=== PATIENT | female | born 1985 | race Hispanic/Latino ===

== ENCOUNTER 2018-07-01 20:20 | Emergency (ER) | payer OTHER ==
[~2018-07-01 20:20] MED LIST: FE F1TAB3 PO; FERR-82 PO; GLYB5TAB8 PO; METH250T3 PO
== END 2018-07-01 20:55 | disposition home or self-care (01) ==
LOC: EDH 20:20
DX: L03.316 Cellulitis of umbilicus (principal); I10 Essential (primary) hypertension; Z72.0 Tobacco use

== ENCOUNTER 2018-07-16 01:28 | Emergency (ER) | payer OTHER ==
[2018-07-16 02:05] LABS: BASOPHILS % (AUTO) 1.3 % (0.0-5.0); EOSINOPHILS % (AUTO) 2.4 % (0.0-8.0); HEMATOCRIT 34.7 % (36-48); LYMPHOCYTES % (AUTO) 24.3 % (21.0-51.0); MEAN CORPUSCULAR HEMOGLOBIN 22.1 pg (27.0-33.0); MEAN CORPUSCULAR HGB CONC 29.8 g/dL (32.0-36.0); MONOCYTES % (AUTO) 5.2 % (3.0-13.0); NEUTROPHILS % (AUTO) 66.8 % (40.0-77.0); PLATELET COUNT (AUTO) 435 K/uL (130-400); RED CELL DISTRIBUTION WIDTH 17.7 % (11.0-15.5)
[2018-07-16 02:08] LABS: APPEARANCE,URINE Clear (CLEAR); BILIRUBIN,URINE Negative (NEGATIVE); COLOR,URINE Yellow (YELLOW); GLUCOSE, URINE (UA) Negative (NEGATIVE); KETONES,URINE Negative (NEGATIVE); LEUKOCYTE ESTERASE ,URINE Negative (NEGATIVE); NITRATE,URINE Negative (NEGATIVE); OCCULT BLOOD,URINE Negative (NEGATIVE); PH,URINE 5.5 (5.0-8.0); PROTEIN,URINE Negative (NEGATIVE)
[2018-07-16 02:15] LABS: CREATININE 0.8 mg/dL (0.5-1.5); POTASSIUM 4.2 mmol/L (3.5-5.1)
[2018-07-16 02:19] LABS: ALBUMIN 3.2 g/dL (3.5-5.0); BILIRUBIN,TOTAL 0.2 mg/dL (0.2-1.0); TOTAL PROTEIN, SERUM 7.2 g/dL (6.0-8.3)
[2018-07-16] MEDS ORDERED: ONDANSETRON HCL 4 MG/2 ML VIAL ONE (03:35)
[2018-07-16] MEDS ORDERED: MORPHINE SULFATE 4 MG/1ML SYG ONE (03:35)
== END 2018-07-16 04:35 | disposition home or self-care (01) ==
LOC: EDH 01:28
DX: K80.50 Calculus of bile duct without cholangitis or cholecystitis without obstruction (principal); K80.20 Calculus of gallbladder without cholecystitis without obstruction; I10 Essential (primary) hypertension; Z72.0 Tobacco use
CPT/HCPCS: 36415; 76705; 80053; 81003; 82150; 83690; 84702; 85025; 86677; 93005; 96374; 96375; 99284; J2270; J2405

== ENCOUNTER 2018-11-08 22:52 | Emergency (ER) | payer OTHER ==
[2018-11-08] MEDS ORDERED: ONDANSETRON ODT 4 MG TAB ONE (23:11)
[2018-11-09] MEDS ORDERED: DEXAMETHASONE SOD PHOSPHATE 10MG/ML 1ML VIAL ONE (00:25)
[2018-11-09] MEDS ORDERED: BENZONATATE 100 MG CAPSULE PO ONE (00:25)
[2018-11-09] MEDS ORDERED: IPRATROPIUM/ALBUTEROL SULFATE 3 ML SOLUTION IH ONE (00:33)
== END 2018-11-09 01:36 | disposition home or self-care (01) ==
LOC: EDH 22:52
DX: J20.9 Acute bronchitis, unspecified (principal); J02.9 Acute pharyngitis, unspecified; I10 Essential (primary) hypertension
CPT/HCPCS: 94640; 96372; 99283; J1100

== ENCOUNTER 2020-12-30 12:09 | Emergency (ER) | payer OTHER ==
[~2020-12-30] VITALS: Ht 162.6 cm; Wt 104.3 kg
[2020-12-30 12:12] VITALS: BP 137/55
[2020-12-30] MEDS ORDERED: FAMOTIDINE 20MG TAB 20 MG TAB PO STA (12:28)
[2020-12-30] MEDS ORDERED: ONDANSETRON HCL 4 MG/2 ML VIAL IVP STA (12:28)
[2020-12-30] MEDS ORDERED: LACTATED RINGERS 1000ML 1,000 ML IV ONE ×2 (12:30→13:53)
[2020-12-30] MEDS: PROCHLORPERAZINE EDISYLATE 10 MG/2 ML VIAL IV SCH ×2 (12:36→14:29)
[2020-12-30 12:50] LABS: APPEARANCE,URINE Cloudy (CLEAR); BILIRUBIN,URINE Negative (NEGATIVE); COLOR,URINE Yellow (YELLOW); GLUCOSE, URINE (UA) Negative (NEGATIVE); KETONES,URINE Negative (NEGATIVE); LEUKOCYTE ESTERASE ,URINE Trace (NEGATIVE); NITRATE,URINE Negative (NEGATIVE); OCCULT BLOOD,URINE Negative (NEGATIVE); PH,URINE 6.5 (5.0-8.0); PROTEIN,URINE Negative (NEGATIVE)
[2020-12-30 13:08] LABS: RBC,URINE 0-1 /HPF (0-1)
[2020-12-30 13:09] LABS: BACTERIA,URINE Moderate /HPF (None Seen); SQUAMOUS EPITHELIAL CELL,UR Many /HPF (0-2)
[2020-12-30 13:19] LABS: BASOPHILS % (AUTO) 0.6 % (0.0-5.0); HEMATOCRIT 38.6 % (36-48); LYMPHOCYTES % (AUTO) 19.3 % (21.0-51.0); MEAN CORPUSCULAR HEMOGLOBIN 22.8 pg (27.0-33.0); MEAN CORPUSCULAR HGB CONC 29.5 g/dL (32.0-36.0); MEAN CORPUSCULAR VOLUME 77.2 fL (79-99); MONOCYTES % (AUTO) 4.7 % (3.0-13.0); NEUTROPHILS % (AUTO) 73.9 % (40.0-77.0); PLATELET COUNT (AUTO) 440 K/uL (130-400); RED CELL DISTRIBUTION WIDTH 18.1 % (11.0-15.5); WHITE BLOOD COUNT (AUTO) 11.9 K/uL (4.8-10.8)
[2020-12-30 13:25] VITALS: BP 135/72
[2020-12-30 13:32] LABS: CREATININE 0.8 mg/dL (0.5-1.5); POTASSIUM 3.7 mmol/L (3.5-5.1)
[2020-12-30 13:36] LABS: ALBUMIN 3.5 g/dL (3.5-5.0); BILIRUBIN,TOTAL 0.4 mg/dL (0.2-1.0); TOTAL PROTEIN, SERUM 7.5 g/dL (6.0-8.3)
[2020-12-30] MEDS ORDERED: ONDANSETRON HCL 4 MG/2 ML VIAL ONE (13:52)
[2020-12-30] MEDS ORDERED: FAMOTIDINE 20MG TAB 20 MG TAB ONE (13:52)
[2020-12-30] MEDS ORDERED: ONDANSETRON 4 MG TABLET PO STA (14:20)
[2020-12-30] MEDS ORDERED: MECLIZINE HCL 25 MG TABLET PO STA (14:20)
[2020-12-30] MEDS ORDERED: ONDA4TAB4 PO (16:47)
[2020-12-30] MEDS ORDERED: MECL-160 PO (16:47)
[2020-12-30] MEDS ORDERED: IBUP-2088 PO (16:47)
[2020-12-30 16:50] VITALS: BP 135/72
== END 2020-12-30 17:08 | disposition home or self-care (01) ==
LOC: EDH 12:09
DX: H81.10 Benign paroxysmal vertigo, unspecified ear (principal); N83.201 Unspecified ovarian cyst, right side; R11.2 Nausea with vomiting, unspecified; E66.9 Obesity, unspecified; Z79.899 Other long term (current) drug therapy
CPT/HCPCS: 36415; 76830; 80053; 81001; 82150; 83690; 84703; 85025; 87088; 99284; J0780; J2405; J7120; Q0162

== ENCOUNTER 2021-09-19 08:50 | Emergency (ER) | payer MEDICAID, OTHER ==
[~2021-09-19] VITALS: Ht 162.6 cm; Wt 105.7 kg
[~2021-09-19 08:50] MED LIST changes: +IBUP-2088 PO; +MECL-160 PO; +ONDA4TAB4 PO
[2021-09-19 09:28] LABS: BASOPHILS % (AUTO) 0.8 % (0.0-5.0); EOSINOPHILS % (AUTO) 4.7 % (0.0-8.0); LYMPHOCYTES % (AUTO) 30.2 % (21.0-51.0); MEAN CORPUSCULAR HEMOGLOBIN 24.1 pg (27.0-33.0); MEAN CORPUSCULAR VOLUME 80.5 fL (79-99); MONOCYTES % (AUTO) 5.7 % (3.0-13.0); NEUTROPHILS % (AUTO) 58.2 % (40.0-77.0); PLATELET COUNT (AUTO) 420 K/uL (130-400); RED BLOOD CELL COUNT(AUTO) 4.97 MIL/uL (4.00-5.50); RED CELL DISTRIBUTION WIDTH 19.1 % (11.0-15.5); WHITE BLOOD COUNT (AUTO) 9.7 K/uL (4.8-10.8)
[2021-09-19 09:30] LABS: APPEARANCE,URINE Clear (CLEAR); BILIRUBIN,URINE Negative (NEGATIVE); COLOR,URINE Yellow (YELLOW); GLUCOSE, URINE (UA) Negative (NEGATIVE); KETONES,URINE Negative (NEGATIVE); LEUKOCYTE ESTERASE ,URINE Trace (NEGATIVE); NITRATE,URINE Negative (NEGATIVE); OCCULT BLOOD,URINE Large (NEGATIVE); PH,URINE 5.5 (5.0-8.0); PROTEIN,URINE Trace mg/dL (NEGATIVE); UROBILINOGEN,URINE 0.2 mg/dL (0.2-1.0)
[2021-09-19] MEDS ORDERED: ONDANSETRON 4MG INJ IVP SCH (09:30)
[2021-09-19] MEDS ORDERED: MORPHINE 4 MG SYG IV SCH (09:30)
[2021-09-19] MEDS ORDERED: 0.9%NACL 1000ML 1,000 ML IV SCH (09:30)
[2021-09-19 09:37] LABS: CREATININE 0.7 mg/dL (0.5-1.5); INR 0.89 (0.85-1.15); POTASSIUM 3.9 mmol/L (3.5-5.1); PROTHROMBIN TIME 9.8 SEC (9.6-11.6)
[2021-09-19 09:38] LABS: PARTIAL THROMBOPLASTIN TIME 28.1 SEC (26.3-35.5)
[2021-09-19 09:50] LABS: BACTERIA,URINE Few /HPF (None Seen); WBC,URINE 0-1 /HPF (0-1)
[2021-09-19 09:51] LABS: SQUAMOUS EPITHELIAL CELL,UR 0-2 /HPF (0-2)
[2021-09-19 09:52] LABS: ALBUMIN 3.6 g/dL (3.5-5.0); BILIRUBIN,TOTAL 0.2 mg/dL (0.2-1.0); TOTAL PROTEIN, SERUM 7.5 g/dL (6.0-8.3)
[2021-09-19 10:38] VITALS: BP 166/70
[2021-09-19] MEDS ORDERED: ACET1TAB25 PO (10:41)
== END 2021-09-19 11:01 | disposition home or self-care (01) ==
LOC: EDH 08:50
DX: O03.9 Complete or unspecified spontaneous abortion without complication (principal); Z98.890 Other specified postprocedural states; Z79.899 Other long term (current) drug therapy; Z79.84 Long term (current) use of oral hypoglycemic drugs; Z79.1 Long term (current) use of non-steroidal anti-inflammatories (NSAID)
CPT/HCPCS: 36415; 76817; 80053; 81001; 84702; 85025; 85610; 85730; 96361; 96374; 96375; 99284; J2270; J2405; J7030

== ENCOUNTER 2025-01-31 19:35 | Inpatient (IN) | payer BC, MEDICAID ==
[~2025-01-31] VITALS: Ht 162.6 cm; Wt 117.7 kg
[~2025-01-31 19:35] MED LIST changes: +ACET-2079 PO; -MECL-160 PO; +MECL-302 PO
[2025-01-31 19:53] LABS: IMMATURE GRANULOCYTE ABSOLUTE 0.05 K/uL (0-1); NUCLEATED RED BLOOD CELLS 0.0 % (0.0-0.19); PLATELET COUNT (AUTO) 427 K/uL (130-400); RED BLOOD CELL COUNT(AUTO) 4.50 MIL/uL (4.00-5.50); RED CELL DISTRIBUTION WIDTH 18.9 % (11.0-15.5); WHITE BLOOD COUNT (AUTO) 8.5 K/uL (4.8-10.8)
[2025-01-31 20:02] LABS: CREATININE 0.6 mg/dL (0.5-1.0); GLOMERULAR FILTR. RATE CALC 116.0 mL/min (>90); GLUCOSE,RANDOM 135.0 mg/dL (70-105); SODIUM SERUM 139.0 mmol/L (136-145); UREA NITROGEN, BLOOD 14.0 mg/dL (7-18)
[2025-01-31 20:11] LABS: CREATINE KINASE, TOTAL 42.0 U/L (21-232)
--- NOTE | 2025-01-31 20:11 | ERN ---
ED Note History of Present Illness Stated Complaint: CHEST PAIN Chief Complaint: Chest Pain Time Seen by MD: 19:38 Dictation: This is a 39-year-old obese female who does not have any routine health care has come in with complaints of midsternal and lower sternal chest pain for the past 1 month. She stated that it feels more like a pressure somebody sitting on her chest and at times she feels a flutter in her chest. No history of any diaphoresis radiation to the shoulder, or syncopal episodes. No history of any gastroesophageal reflux symptoms it is not a reproducible pain on touching or palpation and there is no relation to pain quality changes associated with leaning forward. Temperature 97.2 pulse 77 respirations 20 blood pressure 154/72 with a pulse oximetry of 100% on room air Comorbidities unknown as the patient has never had any routine health care. She does give a history of iron deficiency anemia and gestational diabetes Allergies: Coded Allergies: No Known Drug Allergies (Unverified Allergy, Unknown, 06/18/16) Home Meds Active Scripts Acetaminophen with Codeine (Acetaminophen-Cod #3 Tablet) 1 Each Tablet, 1-2 TAB PO Q6H PRN for SEVERE PAIN (7-10), #12 TAB 0 Refills Prov:RIC MASCORRO MD 09/19/21 Ibuprofen (Motrin/Advil) 600 Mg Tab, 600 MG PO TID, #30 TAB Prov:MARK CLEMENTE NP 12/30/20 Ondansetron HCl (Zofran) 4 Mg Tablet, 4 MG PO TID, #15 TAB Prov:MARK CLEMENTE NP 12/30/20 Meclizine HCl (Meclizine HCl) 25 Mg Tablet, 25 MG PO BID, #30 TAB Prov:MARK CLEMENTE NP 12/30/20 Reported Medications Methyldopa (Methyldopa) 250 Mg Tablet, 250 MG PO DAILY, TAB 07/12/16 Glyburide (Glyburide) 5 Mg Tablet, 5 MG PO DAILY, TAB 07/12/16 Fe Fumarate/Long/E/FA/Multivit (Vitafol Caplet) 1 Each Tablet, 1 EACH PO DAILY, TAB 07/12/16 Ferrous Sulfate (Iron) 325 Mg Tablet, 325 MG PO DAILY, TAB 07/26/15 Past Medical History Past Medical History: Other Additional Past Medical Hx: HEAERT MURMUR Surgical History: Other, Surgical History Other: RT ACL Family History: Negative Social History: Smokers (Smokes a pack for 2-3 days.), Drugs (History of smoking marijuana she also admitted to eating marijuana edibles), ETOH (Admits to drinking socially), Other : 12 Para: 6 Aborts: 6 RN Note Reviewed/Agreed w/PFSH: Yes Review of System Dictation Constitutional: Negative for fever,chills, and weight loss Eyes: Negative for injury, pain,redness, and discharge ENT: Negative for injury,pain or swelling Cardiovascular: Positive for chest pain, palpitations, and edema Respiratory: Negative for shortness of breath, cough, and wheezing, Abdomen/GI: Negative for abdominal pain, nausea, vomiting, diarrhea, and constipation Back: Negative for injury and pain : Negative for injury, bleeding and discharge MS/Extremity: Negative for injury and deformity Skin: Negative for rash, and discoloration Neuro: Negative for headache, weakness, numbness, tingling, and seizure Psych: Negative for suicide ideation, homicidal ideation, and hallucinations Initial Vital Sign VS Vital Signs Date Time Temp Pulse Resp B/P (MAP) Pulse Ox O2 Delivery O2 Flow Rate FiO2 01/31/25 19:36 97.2 77 20 154/72 100 Room Air 01/31/25 20:06 0 21 Physical Exam Dictation General: awake, alert, NAD morbidly obese not in any distress Head/Face: Normocephalic, atraumatic Eyes: PERRL, EOMI, vision at baseline ENT: oral cavity clear, TMs clear, no signs of infection poor dentition with multiple missing teeth Neck: Trachea midline, supple, no nuchal rigidity Cardiovascular: RRR, normal S1/S2, No MRGs, no JVD Respiratory: CTAB, no respiratory distress, No rales or wheezes prolonged expiratory phase Abdomen: Soft, non-tender, non-distended, normal bowel sounds, no guarding or rebound. Skin: Warm, dry, normal turgor, no rash MS/Extremity: Pulses equal, no cyanosis, neurovascular intact, FROM Neuro: COAx4, GCS 15, strength 5/5, CN 2-12 intact, normal cerebellar exam, normal gait, Psych: Normal behavior, mood, and affect normal Extremities-trace edema without any palpable cords, Homans sign is negative Results (Laboratory/Radiology) Laboratory/Radiology Laboratory Tests Test 7/12/25 19:46 White Blood Count 8.5 K/uL (4.8-10.8) Red Blood Count 4.50 MIL/uL (4.00-5.50) Hemoglobin 10.3 g/dL (12.0-16.0) L Hematocrit 35.0 % (36-48) L Mean Corpuscular Volume 77.8 fL (79-99) L Mean Corpuscular Hemoglobin 22.9 pg (27.0-33.0) L Mean Corpuscular Hemoglobin Concent 29.4 g/dL (32.0-36.0) L Red Cell Distribution Width 18.9 % (11.0-15.5) H Platelet Count 427 K/uL (130-400) H Mean Platelet Volume 8.9 fL (7.5-10.5) Immature Granulocyte % (Auto) 0.6 % (0-1) Neutrophils (%) (Auto) 64.2 % (40.0-77.0) Lymphocytes (%) (Auto) 24.9 % (21.0-51.0) Monocytes (%) (Auto) 5.1 % (3.0-13.0) Eosinophils (%) (Auto) 4.4 % (0.0-8.0) Basophils (%) (Auto) 0.8 % (0.0-5.0) Neutrophils # (Auto) 5.5 K/uL (1.8-7.7) Lymphocytes # (Auto) 2.1 K/uL (1.0-4.8) Monocytes # (Auto) 0.4 K/uL (0.1-1.0) Eosinophils # (Auto) 0.37 K/uL (0.00-0.70) Basophils # (Auto) 0.07 K/uL (0.00-0.20) Absolute Immature Granulocyte (auto 0.05 K/uL (0-1) Nucleated Red Blood Cells 0.0 % (0.0-0.19) Red Blood Cell Morphology See comments Sodium Level 139 mmol/L (136-145) Potassium Level 3.9 mmol/L (3.5-5.1) Chloride Level 105 mmol/L (101-111) Carbon Dioxide Level 24 mmol/L (21-32) Blood Urea Nitrogen 14 mg/dL (7-18) Creatinine 0.6 mg/dL (0.5-1.0) Glomerular Filtration Rate Calc 116 mL/min (>90) Random Glucose 135 mg/dL (70-105) H Total Calcium 8.9 mg/dL (8.5-10.1) Total Creatine Kinase 42 U/L (21-232) # Troponin I High Sensitivity < 4 ng/L (4-50) L Labs Reviewed?: Yes ED Course ED Course Orders Procedure Category Date Status Time Vital Signs Per CPOE 01/31/25 Transmitted Routine 19:37 Chest 1vw RAD 01/31/25 Taken 19:37 Oxygen By Nc/Pulse Ox CPOE 01/31/25 Transmitted 19:37 Maintain Iv CPOE 01/31/25 Transmitted 19:37 Iv Insertion CPOE 01/31/25 Transmitted 19:37 Cardiac Monitoring CPOE 01/31/25 Transmitted 19:37 Pulse Oximetry With CPOE 01/31/25 Transmitted Vs And Prn 19:37 Cbc With Differential LAB 01/31/25 Complete 19:37 Activity: Br W/Brp CPOE 01/31/25 Transmitted With Assist 19:37 Creatine Kinase, Total LAB 01/31/25 Complete 19:37 Troponin I High LAB 01/31/25 Complete Sensitivity 19:37 Urinalysis Profile LAB 01/31/25 Logged 19:37 Basic Metabolic Panel LAB 01/31/25 Complete 19:37 ,Urine Test LAB 01/31/25 Logged 20:10 Aspirin 325mg Tab PHA 01/31/25 In Process (Aspirin 325mg Tab) 21:00 Nitroglycerin 0.4mg PHA 01/31/25 In Process Sl Tab (Nitrostat) 21:00 Methylprednisolone PHA 01/31/25 In Process Succ 40mg (Solu-Medro 21:00 Ipratropium/Albuterol PHA 01/31/25 In Process Neb (Duoneb) 21:00 Drug Screen Urine LAB 01/31/25 Logged 20:38 Current Medications Medications (Trade) Dose Ordered Sig/Derrek Route PRN Reason Start Time Stop Time Status Last Admin Dose Admin Albuterol (DUOneb) 1 UDVIAL ONCE ONCE IH 01/31/25 21:00 01/31/25 21:01 Aspirin (Aspirin 325mg Tab) 325 mg ONCE ONCE PO 01/31/25 21:00 01/31/25 21:01 Methylprednisolone Sodium Succinate (Solu-medROL 40MG) 40 mg ONCE ONCE IVP 01/31/25 21:00 01/31/25 21:01 Nitroglycerin (Nitrostat) 0.4 mg AD PRN SL CHEST PAIN 01/31/25 21:00 03/02/25 20:59 Vital Signs Date Time Temp Pulse Resp B/P (MAP) Pulse Ox O2 Delivery O2 Flow Rate FiO2 01/31/25 20:06 97.9 70 17 142/76 99 Room Air* 0 21 01/31/25 19:36 97.2 77 20 154/72 100 Room Air We will perform diagnostic labs, advanced imaging and administer medications according to the patient's complaint. Once the results are available, will review and personally interpreted the labs to rule out any acute life-th reatening emergency the trach require immediate intervention and treatment. I will then re-evaluate the patient after treatment and diagnostic exams have return to determine whether the patient requires any further testing, can safely be discharged home or need further admission to hospital for additional treatment and evaluation. Reviewed labs CBC showed a hemoglobin of 10.3 white count 8.5 platelets 427. BNP 7 is with a normal limits troponins are negative. Chest x-ray showed mild prominence of the bilateral interstitial infiltrates Due to multiple lifestyle risk factors even though she has not been evaluated for any comorbidities, I recommended that she needs to be evaluated further for diastolic dysfunction, even ischemic heart disease and she is agreeable 8:45 p.m. patient accepted by [facility] mid-level provider for hospitalist group for admission and further management Medical Decision Making MDM MDM: Differential diagnosis: Unstable angina, esophagitis, musculoskeletal pain, gastritis, pulmonary related Rationale: Tests considered and ordered secondary to shared decision making include: labs, ECG and radiology Previous outside records reviewed: Old ER visits. Risk of complication and/or morbidity or mortality of patient management: None Medications-Per medication reconciliation Need for hospitalization: Patient does meet criteria for hospitalization. Need for emergency major/minor surgery: No There are no social concerns with this patient. Prescription drug management Prescriptions will include symptomatic care Patient's prior external medical records from other ER visits were reviewed by me as indicated. Prior testing and results from previous visits were reviewed. Prior tests were taken into account with medical decision making and resource utilization, independent historian/historians were used to obtain complete medical history. I independently interpreted the test that were performed, results were reviewed by me and considered findings on radiology if ordered. Medical management and examination interpretation discussions were had by me with other qualified healthcare professionals as indicated for the patient's care. Problem List Problem List: (1) Unstable angina (2) COPD with acute exacerbation (3) Tobacco abuse disorder (4) Cannabis use disorder (5) Morbid obesity DX & DISP Disposition: Inpatient Departure Impression: Primary Impression: Unstable angina Additional Impressions: COPD with acute exacerbation, Tobacco abuse disorder, Cannabis use disorder, Morbid obesity Condition: Stable Additional Instructions: Patient and the caregiver have been informed of all the diagnostic tests and the imaging conducted during the today's visit to the emergency room and has verbalized understanding of the results I have personally reviewed and interpreted all diagnostic exams performed here in the ER today as well as the vital signs documented by the nursing staff. The patient is now being discharged to home and should follow up with the primary care physician or the specialist as directed by the ER staff. Follow-up with primary care provider in 1 to 2 days. Take medications as directed here in the emergency room. Okay to continue home medications unless otherwise discussed during your visit in the emergency room today. Return to your nearest emergency room if symptoms worsen or if there is no improvement. Call 911 if you need immediate assistance. Take Tylenol or Motrin [id number] as needed and if no contraindications are present. Increase oral hydration. A wound culture or urine culture was ordered here in the emergency room department please follow-up with primary care provider and advise them to get repeat ports from our facility. If you had any Naw[place] wrap/splints that were applied here, please do not remove them until you see your primary care or sp ecialty. Referrals: SELF,REFERRAL (PCP) SADE VU MD Jan 31, 2025 20:11
[2025-01-31] MEDS: Solu-medROL 40MG VIAL IVP ONE (20:55)
[2025-01-31] MEDS: NITROGLYCERIN 0.4 MG SL TAB SL PRN (20:55)
[2025-01-31] MEDS: ASPIRIN 325MG TAB PO ONE (20:55)
[2025-01-31 21:14] LABS: APPEARANCE,URINE CLEAR (CLEAR); GLUCOSE, URINE (UA) NEGATIVE (NEGATIVE); LEUKOCYTE ESTERASE ,URINE NEGATIVE Leu/uL (NEGATIVE); NITRATE,URINE NEGATIVE (NEGATIVE); OCCULT BLOOD,URINE NEGATIVE (NEGATIVE)
[2025-01-31 21:15] LABS: ADD UA MICROSCOPIC YES
[2025-01-31 21:17] LABS: OTHER CASTS, URINE 1 /LPF (None Seen); SQUAMOUS EPITHELIAL CELL,UR FEW /HPF (0-2)
[2025-01-31 21:22] LABS: AMPHET/METH SCREEN,URINE NEGATIVE (NEGATIVE); BARBITURATE SCREEN, URINE NEGATIVE (NEGATIVE); CANNABINOID SCREEN,URINE POSITIVE (NEGATIVE); COCAINE SCREEN,URINE NEGATIVE (NEGATIVE)
[2025-01-31 21:36] VITALS: PULSE 71; RESP 18
--- NOTE | 2025-01-31 22:56 | HMCIMG ---
EXAM: CR Chest, 1 view. CLINICAL HISTORY: Chest pain. COMPARISON: X-ray chest dated 02/26/17. FINDINGS: The lungs show no infiltrate or other acute findings. No pleural effusion or pneumothorax. The cardiomediastinal silhouette is within normal limits. No acute osseous abnormality. IMPRESSION: No acute cardiopulmonary pathology is evident. No gross interval changes. /Placida
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
[2025-01-31 23:40] VITALS: RESP 19; O2SAT 99
[2025-01-31] MEDS: NITROGLYCERIN 1GM OINT 1 INCH/1GM TD SCH (23:48)
[2025-02-01] VITALS (11 sets, daily range): BP systolic 143–172; BP diastolic 75–87; PULSE 70–111; RESP 16–19; TEMP 97.6–98.5; O2SAT 96–99
[2025-02-01 04:10] LABS: IMMATURE GRANULOCYTE ABSOLUTE 0.12 K/uL (0-1); NUCLEATED RED BLOOD CELLS 0.0 % (0.0-0.19); PLATELET COUNT (AUTO) 499 K/uL (130-400); RED BLOOD CELL COUNT(AUTO) 4.84 MIL/uL (4.00-5.50); RED CELL DISTRIBUTION WIDTH 19.1 % (11.0-15.5); WHITE BLOOD COUNT (AUTO) 10.8 K/uL (4.8-10.8)
[2025-02-01 04:24] LABS: % IRON SATURATION 7.0 % (22-44); IRON, SERUM 36.0 mcg/dL (50-170)
[2025-02-01 04:37] LABS: ASPARTATE AMINOTRANSFERASE 18.0 U/L (10-37); CREATINE KINASE, TOTAL 34.0 U/L (21-232); CREATININE 1.1 mg/dL (0.5-1.0); GLOMERULAR FILTR. RATE CALC 65.0 mL/min (>90); GLUCOSE,RANDOM 217.0 mg/dL (70-105); LDL DIRECT 150.0 mg/dL (0-99); SODIUM SERUM 139.0 mmol/L (136-145); TOTAL PROTEIN, SERUM 7.8 g/dL (6.0-8.3); UREA NITROGEN, BLOOD 13.0 mg/dL (7-18)
[2025-02-01 05:14] LABS: ERYTHROCYTE SEDIMENTATION RATE 26 MM/HR (0-20)
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
[2025-02-01] MEDS: FAMOTIDINE 20MG TAB PO SCH (08:34)
[2025-02-01] MEDS: ASPIRIN 81 MG EC TAB PO SCH (08:34)
--- NOTE | 2025-02-01 12:38 | PN ---
[facility] PROGRESS NOTE Date of Service: Feb 01, 2025 Time of Service: 12:35 Attending doctor Krys SUBJECTIVE: [ 01/31 This is a 39-year-old female who looks more than her stated age past medical history of gestational diabetes ,heart murmur and hypertension related to who presents to the Ed for complaints of midsternal chest pain on going for the past 1 month.Patient described chest psin as chest pressure "feels like somoen sitting on my chest " and she also reports having chest palpitation .Patient also reports 1 week ago she felt her left side of the heart moved .Patient states lately she noticed she has becoming more weak and easily get tired and short of breath on exertion.Patient reports she smoke 1 pack of cigarette per week and uses marijuana.Patient reports she is in a stressful life situation because of her ex trying to get custody over her kids. Seen and examined patient int he ER awake,alert and coherent,appears uncomfortable complain of 5/10 pain level.Patient denies diaphoresis,naus ea,vomiting,cough,abdominal pain and diarrhea. \\ 02/01 patient was seen by nurse practitioner and physician during rounding in r oom 421. Patient is still continues chest pain that is exactly in the middle of the chest. Does not radiate anywhere. Chest x-ray was negative. 2D echo was ordered and CT abdomen/pelvis was ordered to rule out any other possible problems other than cardiac issue. Patient was positive for marijuana. Patient also stated that on regular basis she uses CBD. Patient denies any home medications. We will continue to monitor patient in the meantime. A.m. labs] REVIEW OF SYSTEMS CONSTITUTIONAL: Denies fevers, chills, or night sweats. No unintentional weight loss reported. NEUROLOGICAL: Denies any body weakness and fatigue Denies headache, amaurosis fugax, sensory deficit, vertigo/spinning sensation, gait abnormalities, or tremors. ENT: No hearing loss, otalgia, otorrhea, rhinitis, rhinorrhea, hoarseness, or sore throat. CARDIOVASCULAR: Complaints of chest pain Denies dyspnea on exertion, orthopnea, paroxysmal nocturnal dyspnea, palpitations, life-threatening arrhythmias, claudication. PULMONARY: Denies any shortness of breaths Denies cough, phlegm/sputum, hemoptysis, pleuritic chest pain. SLEEP: Denies morning headaches, daytime somnolence or napping. Denies difficulty falling asleep, staying asleep, waking from sleep. Denies knowledge of snoring. GASTROINTESTINAL: Denies any type of dysphagia to either liquids or solids. Denies nausea, vomiting, pyrosis, early satiety, abdominal pain, diarrhea, constipation, or changes in stool consistency or caliber. Denies coffee-ground emesis, hematemesis, hematochezia, or melanotic stools. GENITOURINARY: Denies frequency, urgency, nocturia, hematuria or incontinence (Storage/Irritative symptoms.) Low urinary stream, straining to void, urinary intermittency or hesitancy, splitting of the voiding stream, terminal dribbling. ENDOCRINOLOGIC: Denies polyuria, polydipsia, polyphagia or heat/cold intolerances. HEMATOLOGIC: Denies thrombophilia/previous clots, or coagulopathy/bleeding disorders. ONCOLOGIC: Denies personal history of malignancy. DERMATOLOGIC: Denies rashes or pruritus. PSYCHIATRIC: Denies any suicidal or homicidal ideation. Denies hallucinations. PHYSICAL EXAM GENERAL APPEARANCE: The patient is awake, alert, and oriented, in no acute cardiopulmonary distress. NEUROLOGICAL: Cranial nerves II-XII grossly intact. Motor is 5/5 in bilateral upper and lower extremities proximal to distal. No sensory deficits. HEENT: Face is symmetric. Pupils are equal and reactive. Extraocular movements are intact. NECK: Supple. No JVD. No thyromegaly. No submental, submandibular, pre- /postauricular, occipital or supraclavicular lymphadenopathy. CHEST: Normal chest expansion. No Telemetry. LUNGS: Absence of any rales, rhonchi or any wheezing. CARDIOVASCULAR: Regular. S1 and S2 normal. No appreciable rubs, murmurs or gallops. ABDOMEN: Soft, nontender, and nondistended. There is no rebound, voluntary guarding, or rigidity. : Deferred. No [place]. EXTREMITIES: Non-edematous and not cyanotic. No clubbing. Good capillary refill. SKIN: No skin breakdown. Vital Signs (last 8hr) Date Time Temp Pulse Resp B/P (MAP) Pulse Ox O2 Delivery O2 Flow Rate FiO2 02/01/25 11:30 98.1 76 18 147/76 99 Room Air 02/01/25 08:00 96 Room Air* 0 21 02/01/25 07:54 97.5 89 17 153/80 96 Room Air 02/01/25 06:21 18 N/A Room Air 21 LABS: Laboratory: Test 02/01/25 11:13 02/01/25 03:50 01/31/25 21:03 01/31/25 19:46 Range/Units Troponin I High Sensitivity 4 4-50 ng/L White Blood Count 10.8 # 4.8-10.8 K/uL Red Blood Count 4.84 4.00-5.50 MIL/uL Hemoglobin 11.0 L 12.0-16.0 g/dL Hematocrit 37.4 36-48 % Mean Corpuscular Volume 77.3 L 79-99 fL Mean Corpuscular Hemoglobin 22.7 L 27.0-33.0 pg Mean Corpuscular Hemoglobin Concent 29.4 L 32.0-36.0 g/dL Red Cell Distribution Width 19.1 H 11.0-15.5 % Platelet Count 499 H 130-400 K/uL Mean Platelet Volume 9.1 7.5-10.5 fL Immature Granulocyte % (Auto) 1.1 H 0-1 % Neutrophils (%) (Auto) 87.6 H 40.0-77.0 % Lymphocytes (%) (Auto) 10.2 L 21.0-51.0 % Monocytes (%) (Auto) 0.5 L 3.0-13.0 % Eosinophils (%) (Auto) 0.2 0.0-8.0 % Basophils (%) (Auto) 0.4 0.0-5.0 % Neutrophils # (Auto) 9.5 H 1.8-7.7 K/uL Lymphocytes # (Auto) 1.1 1.0-4.8 K/uL Monocytes # (Auto) 0.1 0.1-1.0 K/uL Eosinophils # (Auto) 0.02 0.00-0.70 K/uL Basophils # (Auto) 0.04 0.00-0.20 K/uL Absolute Immature Granulocyte (auto 0.12 0-1 K/uL Nucleated Red Blood Cells 0.0 0.0-0.19 % Erythrocyte Sedimentation Rate 26 H 0-20 MM/HR Sodium Level 139 136-145 mmol/L Potassium Level 4.1 3.5-5.1 mmol/L Chloride Level 104 101-111 mmol/L Carbon Dioxide Level 24 21-32 mmol/L Blood Urea Nitrogen 13 7-18 mg/dL Creatinine 1.1 H 0.5-1.0 mg/dL Glomerular Filtration Rate Calc 65 >90 mL/min Random Glucose 217 #H 70-105 mg/dL Total Calcium 9.1 8.5-10.1 mg/dL Magnesium Level 1.70 L 1.80-2.40 mg/dL Iron Level 36 L 50-170 mcg/dL Total Iron Binding Capacity 510 H 250-450 mcg/dL Percent Iron Saturation 7.0 L 22-44 % Total Bilirubin 0.4 0.2-1.0 mg/dL Aspartate Amino Transf (AST/SGOT) 18 10-37 U/L Alanine Aminotransferase (ALT/SGPT) 29 12-78 U/L Alkaline Phosphatase 130 50-136 U/L Total Creatine Kinase 34 21-232 U/L B-Type Natriuretic Peptide 24 0-100 pg/mL Total Protein 7.8 6.0-8.3 g/dL Albumin 3.4 L 3.5-5.0 g/dL Triglycerides Level 181 30-200 mg/dL Cholesterol Level 241 H <200 mg/dL LDL Cholesterol 150 H 0-99 mg/dL HDL Cholesterol 49 35-85 mg/dL Thyroid Stimulating Hormone (TSH) 0.27 L 0.36-3.74 uIU/mL Urine Color LIGHT-YELLOW YELLOW Urine Appearance CLEAR CLEAR Urine pH 6.0 5.0-8.0 Urine Specific [place] 1.020 1.001-1.031 Urine Protein NEGATIVE NEGATIVE mg/dL Urine Glucose (UA) NEGATIVE NEGATIVE mg/dL Urine Ketones NEGATIVE NEGATIVE mg/dL Urine Occult Blood NEGATIVE NEGATIVE Urine Nitrate NEGATIVE NEGATIVE Urine Bilirubin NEGATIVE NEGATIVE mg/dL Urine Urobilinogen 0.2 0.2-1.0 mg/dL Urine Leukocyte Esterase NEGATIVE NEGATIVE Lenny/uL Urine RBC 0-1 0-1 /HPF Urine WBC 2-5 H 0-1 /HPF Urine Squamous Epithelial Cells FEW 0-2 /HPF Urine Bacteria RARE None Seen /HPF Urine Other Casts 1 None Seen /LPF Urine HCG, Qualitative NEGATIVE NEGATIVE Urine Opiates Screen NEGATIVE NEGATIVE Urine Barbiturates Screen NEGATIVE NEGATIVE Urine Phencyclidine Screen NEGATIVE NEGATIVE Urine Amphetamines Screen NEGATIVE NEGATIVE Urine Benzodiazepines Screen NEGATIVE NEGATIVE Urine Cocaine Screen NEGATIVE NEGATIVE Urine Marijuana (THC) Screen POSITIVE H NEGATIVE Red Blood Cell Morphology See comments Hemoglobin A1c 5.8 4.0-6.0 % Estimated Average Glucose (eAG) 120 70-126 mg/dL Current Medications Medications (Trade) Dose Ordered Sig/Derrek Route PRN Reason Start Time Stop Time Status Last Admin Dose Admin Acetaminophen (TYLenol 325MG TAB) 650 mg Q4H PRN PO MILD PAIN (1-3) 01/31/25 23:30 03/02/25 23:29 Acetaminophen (TYLenol 325MG TAB) 650 mg Q6H PRN PO TEMPERATURE GREATER THAN 101.5 01/31/25 23:30 03/02/25 23:29 02/01/25 08:36 650 MG Albuterol (DUOneb) 1 udvial [id number] PRN IH SHORTNESS OF BREATH 01/31/25 23:30 03/02/25 23:29 Aspirin (Aspirin 81mg Ec Tab) 81 mg DAILY PO 02/01/25 09:00 03/03/25 08:59 02/01/25 08:34 81 MG Famotidine (Pepcid 20mg Tab) 20 mg BID PO 02/01/25 09:00 03/03/25 08:59 02/01/25 08:34 20 MG Magnesium Sulfate 50 ml @ 0 mls/hr PROTOCOL IV 02/01/25 12:00 03/03/25 11:59 Nitroglycerin (Nitroglycerin 1gm Oint) 0.5 inch Q8H TD 01/31/25 23:30 03/02/25 23:29 02/01/25 08:34 0.5 INCH Nitroglycerin (Nitrostat) 0.4 mg AD PRN SL CHEST PAIN 01/31/25 21:00 03/02/25 20:59 01/31/25 20:55 0.4 MG Ondansetron HCl (zoFRAN 4MG INJ) 4 mg Q6H PRN IV NAUSEA/VOMITING 01/31/25 23:30 03/02/25 23:29 DIAGNOSTICS / RADIOLOGY: [ ] ASSESSMENT: Unstable angina POA Substance abuse POA Morbid obesity POA Hypertension POA Acute anemia POA Acute thrombocytosis POA Hyperglycemia POA Possible anxiety disorder POA PLAN: Continue patient in medical telemetry Continue heart healthy diet Continue aspirin 81 mg p.o. daily Continue famotidine 20 mg p.o. b.i.d. for GI prophylaxis Continue on nitro paste 0.5 in Q 8 hours topical We will replace electrolytes as needed per protocol We will add prn medication for fever,pain,cough , nausea and vomiting As per patient she does not take any medications at home Counseled on smoking cessation and marijuana use cessation Troponins negative x3 Chest x-ray negative 2D echo pending CT abdomen/pelvis pending A.m. labs Further orders to follow depending on above results Case discussed with attending physician and came up with above treatment and plan of care. ATTESTATION BY PHYSICIAN I have seen and examined the patient. I reviewed the documentation, medical decision making, and treatment plan as noted by the mid-level provider above. I agree with the findings and plan of care. OMAR Franklin MD [employer] Feb 01, 2025 12:38
[2025-02-01] MEDS: MAGNESIUM 2GM PREMIX 50ML 50 ML IV SCH (13:02)
--- NOTE | 2025-02-01 15:08 | EKG ---
[facility] Test Date: 2025-01-31 Test Time: 19:40:27 Pat Name: SUGEY CASTANEDA Department: [facility] Room: 421 1 Gender: F Skating Carhop: [id number] : 1985 Requested By: SADE VU Order Number: [id number] Reading MD: Basia Medrano Measurements Intervals [place] Rate: 75 P: 63 FL: 145 QRS: 71 QRSD: 75 T: 38 QT: 361 QTc: 405 Interpretive Statements Sinus rhythm Compared to ECG 07/16/2018 01:39:55 Sinus arrhythmia no longer present Electronically Signed On 02-02-2025 15:28:21 CDT by Basia Medrano Please click the below link to view image of tracing.
--- NOTE | 2025-02-01 15:21 | HMCSR ---
APPROVED REPORT EXAM: Two-dimensional and M-mode echocardiogram with Doppler and color Doppler. INDICATION ICD: Chest Pain Heart Failure 2D Dimensions RVDd4.2 cmLVEF(%)36.8 (>50%)LVED Vol(simp.)141.0 mL IVSd1.2 (0.7-1.1cm)FS(%)17 %LVES Vol(simp.)53.0 mL LVDd4.1 (3.8-5.6cm)LA (2D)3.7 (1.6-4.0cm)LVEF(%, simp.)63 % PWd1.0 (0.7-1.1cm)Ao Root(2D)2.8 (2.0-3.7cm)LA ESV INDEX (BP)33.63 mL/m2 LVDs3.4 (2.5-4.0cm)LVOT diam2.1 (1.8-2.4cm) IVC diam1.9 cm Deformation Strain Apical 4-20.1 % Apical 2-22.6 % Apical 3-20.0 % Global Strain-20.9 % Aortic Valve AoV Vmax2.0 m/Octavia Peak GR16.4 mmHgLVOT Vmax1.3 m/s AoV VTI0.4 mAo Mean GR7.8 mmHgLVOT VTI0.30 m LOUIE (VMAX)2.36 cm2AVA (VTI) 2.5 cm2 Mitral Valve MV E Vmax94.9 cm/sDECEL Dtqj850 ms MV A Vmax59.8 cm/sP 1/2 T44 ms E/A ratio1.6MVA (PHT)5.0 cm2 TDI E/E' Hltnvz04.8E/E' Lateral8.5 Medial E' Peak V8.04 cm/sLateral E' Peak V11.11 cm/s Pulmonary Valve PV Vmax1.2 m/s PV Peak GR5.3 mmHg Left Ventricle Left ventricular cavity size is normal. No regional wall motion abnormalities noted. There is normal left ventricular wall thickness. LVEF is 60-65%. The left ventricular diastolic function is normal. Right Ventricle The right ventricle is normal size. The right ventricular systolic function is normal. Atria The left atrium size is normal. The right atrium size is normal. Aortic Valve The aortic valve is normal in structure. No aortic regurgitation is present. There is no aortic valvu lar stenosis. Mitral Valve The mitral valve is normal in structure. There is no mitral valve regurgitation noted. There is no mi tral valve stenosis. Tricuspid Valve The tricuspid valve is normal in structure. There is no tricuspid valve regurgitation noted. Pulmonic Valve The pulmonary valve is normal in structure. There is no pulmonic valvular regurgitation. Great Vessels The aortic root is normal in size. The IVC is normal in size and collapses >50% with inspiration. Pericardium There is no pericardial effusion. Conclusion Left ventricular cavity size is normal. LVEF is 60-65%. The left ventricular diastolic function is normal. The right ventricle is normal size. The right ventricular systolic function is normal. The left atrium size is normal. The right atrium size is normal. no valvular pathology There is no pericardial effusion.
--- NOTE | 2025-02-01 17:57 | NUR ---
INITIAL/DCP HOME Met w pt this afternoon to discuss dcp. Pt mentions that she lives at home w her children ages 19, 8,9,10. She mentions that she is currently in a custody exchange w her ex. States that older dtrs assist w care of younger children. She does not own a vehicle and transportation is difficult often asking for rides. She states that she does not have health ins and sometimes uses CBD for pain. 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 Provided pt w Good Rx coupon and community resource packet. Discharge goal is to turn home. Addendum: 02/01/25 at 1802 by JONELLE NARAYAN CM Amended: Links added.
[2025-02-02] VITALS (7 sets, daily range): BP systolic 120–144; BP diastolic 54–98; PULSE 67–82; RESP 18–19; TEMP 98–98.7; O2SAT 98–99
[2025-02-02 05:47] LABS: IMMATURE GRANULOCYTE ABSOLUTE 0.11 K/uL (0-1); NUCLEATED RED BLOOD CELLS 0.0 % (0.0-0.19); PLATELET COUNT (AUTO) 437 K/uL (130-400); RED BLOOD CELL COUNT(AUTO) 4.51 MIL/uL (4.00-5.50); RED CELL DISTRIBUTION WIDTH 19.4 % (11.0-15.5); WHITE BLOOD COUNT (AUTO) 10.2 K/uL (4.8-10.8)
[2025-02-02 06:11] LABS: ASPARTATE AMINOTRANSFERASE 13.0 U/L (10-37); CREATININE 0.7 mg/dL (0.5-1.0); GLOMERULAR FILTR. RATE CALC 111.0 mL/min (>90); GLUCOSE,RANDOM 104.0 mg/dL (70-105); SODIUM SERUM 138.0 mmol/L (136-145); TOTAL PROTEIN, SERUM 6.9 g/dL (6.0-8.3); UREA NITROGEN, BLOOD 14.0 mg/dL (7-18)
--- NOTE | 2025-02-02 07:12 | HMCIMG ---
EXAM: CT Abdomen and Pelvis without IV contrast CLINICAL HISTORY: Severe abdominal pain. TECHNIQUE: Thin collimated axial CT images of the abdomen and pelvis were obtained, with sagittal and coronal reformatted images also submitted. A CT scan is done according to ALARA (As Low As Reasonably Achievable). CONTRAST: None. COMPARISON: CT scan of the abdomen and pelvis. 04/01/2012. FINDINGS: Unremarkable visualized lung parenchyma. There is no focal abnormality appreciated within the liver, pancreas, spleen, adrenals, or kidneys. The gallbladder is partially distended with small calculi at the gallbladder neck largest measuring 5 mm. There is no obvious bowel wall thickening. Bowel loops are normal in caliber without evidence of obstruction or ileus. The appendix is unremarkable. There is no abnormality within the urinary bladder. Unremarkable reproductive organs. No lymphadenopathy. No free fluid. No pneumoperitoneum. No gross abnormality in the abdominal vessels. There is no acute osseous abnormality. Lumbarization of S1 vertebral body. Grade 1 anterolisthesis of L5 over S1 by 5 mm. There is lysis of bilateral L5 and S1 pars interarticularis. IMPRESSIONS: No acute abdominal or pelvic pathology. Cholelithiasis. Lumbarization of S1 vertebral body. Grade 1 anterolisthesis of L5 over S1 by 5 mm. There is lysis of bilateral L5 and S1 pars interarticularis. /[place]
--- NOTE | 2025-02-02 08:56 | EKG ---
[facility] Test Date: 2025-02-01 Test Time: 15:47:41 Pat Name: SUGEY CASTANEDA Department: [facility] Room: 421 1 Gender: F Route Inspector: [id number] : 1985 Requested By: OMAR MARCOS Order Number: [id number] Reading MD: Basia Medrano Measurements Intervals [place] Rate: 75 P: 47 DC: 128 QRS: 77 QRSD: 76 T: 29 QT: 396 QTc: 442 Interpretive Statements Normal sinus rhythm Compared to ECG 01/31/2025 19:40:27 No significant changes Electronically Signed On 02-02-2025 15:30:03 CDT by Basia Medrano Please click the below link to view image of tracing.
[2025-02-02] MEDS ORDERED: AEC81 PO (12:40)
--- NOTE | 2025-02-02 12:43 | DS ---
Discharge Summary Hospital Course Summary: Patient admitted to the hospital January 31, 2025 with the following history of the present illness: This is a 39-year-old female who looks more than her stated age past medical history of gestational diabetes ,heart murmur and hypertension related to who presents to the Ed for complaints of midsternal chest pain on going for the past 1 month.Patient described chest psin as chest pressure "feels like somoen sitting on my chest " and she also reports having chest palpitation .Patient also reports 1 week ago she felt her left side of the heart moved .Patient states lately she noticed she has becoming more weak and easily get tired and short of breath on exertion.Patient reports she smoke 1 pack of cigarette per week and uses marijuana.Patient reports she is in a stressful life situation because of her ex trying to get custody over her kids. Seen and examined patient int he ER awake,alert and coherent,appears u ncomfortable complain of 5/10 pain level.Patient denies diaphoresis,nausea,vomiting,cough,abdominal pain and diarrhea. Latest vital signs temperature 97.9, heart rate 68, blood pressure 138/77 saturation 99% on room air. Labs: Hemoglobin 10, hematocrit 35 platelet count 427. Glucose 135 troponin four hemoglobin A1c 5.8 shortness of the chemistries normal. Urine toxicology positive marijuana. Urinalysis unremarkable. Chest x-ray result is unremarkable. ECG is unavailable at this time. While in the ER patient received aspirin 325 mg p.o. Nitrostat sublingual, Solu-Medrol 40 mg IV and albuterol neb treatment and levofloxacin 750 mg p.o. ER called and recommended to admit the patient. HOSPITAL COURSE 02/01 patient was seen by nurse practitioner and physician during rounding in room 421. Patient is still continues chest pain that is exactly in the middle of the chest. Does not radiate anywhere. Chest x-ray was negative. 2D echo was ordered and CT abdomen/pelvis was ordered to rule out any other possible problems other than cardiac issue. Patient was positive for marijuana. Patient also stated that on regular basis she uses CBD. Patient denies any home medications. We will continue to monitor patient in the meantime. A.m. labs ECHOCARDIOGRAM DONE, REPORTED FOLLOWS: Left ventricular cavity size is normal. LVEF is 60-65%. The left ventricular diastolic function is normal. The right ventricle is normal size. The right ventricular systolic function is normal. The left atrium size is normal. The right atrium size is normal. no valvular pathology There is no pericardial effusion. CT ABDOMEN AND PELVIS NO ACUTE ABDOMINAL OR PELVIC PATHOLOGY Today patient is alert oriented x3, hemodynamically stable, she denies dizziness, no headache, no blurry vision, no chest pain, shortness shortness for breath, no palpitations, no nausea, no vomiting, no abdominal pain, no diarrhea, no constipation, no melena, no hematochezia, no hematemesis, no hematuria, no dysuria. Patient would like to be discharged home today. Patient was counseled in terms of marijuana abuse cessation. She was advised to return to the hospital if her condition changes, patient agreed with the plan and understood the information provided. Assessment/Plan: Final diagnosis Unstable angina POA Substance abuse POA Morbid obesity POA Hypertension POA Acute anemia POA Acute thrombocytosis POA Hyperglycemia POA Possible anxiety disorder POA Discharge Instructions: Patient was counseled in terms of marijuana abuse cessation. She was advised to return to the hospital if her condition changes, patient agreed with the plan and understood the information provided. Home Medications: Discontinued Reported Medications Methyldopa (Methyldopa) 250 Mg Tablet, 250 MG PO DAILY, TAB 07/12/16 Glyburide (Glyburide) 5 Mg Tablet, 5 MG PO DAILY, TAB 07/12/16 Fe Fumarate/Long/E/FA/Multivit (Vitafol Caplet) 1 Each Tablet, 1 EACH PO DAILY, TAB 07/12/16 Ferrous Sulfate (Iron) 325 Mg Tablet, 325 MG PO DAILY, TAB 07/26/15 Discontinued Scripts Acetaminophen with Codeine (Acetaminophen-Cod #3 Tablet) 1 Each Tablet, 1-2 TAB PO Q6H PRN for SEVERE PAIN (7-10), #12 TAB 0 Refills Prov:RIC MASCORRO MD 09/19/21 Ibuprofen (Motrin/Advil) 600 Mg Tab, 600 MG PO TID, #30 TAB Prov:MARK CLEMENTE NP 12/30/20 Ondansetron HCl (Zofran) 4 Mg Tablet, 4 MG PO TID, #15 TAB Prov:MARK CLEMENTE NP 12/30/20 Meclizine HCl (Meclizine HCl) 25 Mg Tablet, 25 MG PO BID, #30 TAB Prov:MARK CLEMENTE NP 12/30/20 Time spent arranging discharge: 31-60 minutes ROCIO CALLAWAY MD Feb 02, 2025 12:43
--- NOTE | 2025-02-02 18:00 | NUR ---
CONTINUE PREV NOTE DISCHARGED IV WAS REMOVED WITHOUT COMPLICATIONS. PT VERBALIZED UNDERSTANDING. NO FURTHER QUESTIONS. PT WAS TRANSPORTED DOWNSTAIRS VIA W/C BY CASINO WORKER. NO S/S OF DISTRESS NOTED.
--- NOTE | 2025-02-02 18:00 | NUR ---
DISCHARGED PT WAS EDUCATED ON HOW TO RELAX AND TRY TO CONTROL ANXIETY
== END 2025-02-02 18:00 | disposition home or self-care (01) | DRG 311 ==
LOC: EDH 19:35 → EDHIP 19:36 → 4DH 02-01 00:04
PROVIDERS: ADMIT Hospitalist; ATTEND Hospitalist
DX: I20.0 Unstable angina (principal); Z68.41 Body mass index [BMI] 40.0-44.9, adult; E66.01 Morbid (severe) obesity due to excess calories; J44.9 Chronic obstructive pulmonary disease, unspecified; I10 Essential (primary) hypertension; D64.9 Anemia, unspecified; D75.839 Thrombocytosis, unspecified; R73.9 Hyperglycemia, unspecified; F12.10 Cannabis abuse, uncomplicated; F17.210 Nicotine dependence, cigarettes, uncomplicated; F41.9 Anxiety disorder, unspecified; Z71.6 Tobacco abuse counseling; Z82.49 Family history of ischemic heart disease and other diseases of the circulatory system; Z82.5 Family history of asthma and other chronic lower respiratory diseases; Z83.3 Family history of diabetes mellitus; Z86.32 Personal history of gestational diabetes; Z80.9 Family history of malignant neoplasm, unspecified; Z80.8 Family history of malignant neoplasm of other organs or systems
CPT/HCPCS: 36415; 71045; 74176; 80048; 80053; 80061; 80305; 81001; 81025; 82550; 83036; 83540; 83550; 83735; 83880; 84443; 84484; 85025; 85651; 93005; 93306; 93356; 94640; 94664; 99285; G0378; J2919; J3475